=== PATIENT | female | born 1950 | race Caucasian/White ===

== ENCOUNTER 2018-04-14 08:08 | Emergency (ER) | payer OTHER ==
[~2018-04-14] VITALS: Ht 170.2 cm; Wt 90.7 kg
[2018-04-14 08:17] VITALS: BP 187/96
[2018-04-14] MEDS ORDERED: SYNTHROID25 MC1 PO (08:18)
[2018-04-14] MEDS ORDERED: VITAMIN D5000 UNIT PO (08:19)
[2018-04-14] MEDS ORDERED: CENTRUM SILVER1 EAC2 PO (08:19)
[2018-04-14] MEDS ORDERED: CELEXA20 MG PO (08:19)
[2018-04-14] MEDS ORDERED: PRAVACHOL20 MG PO (08:19)
[2018-04-14] MEDS ORDERED: LISINOPRIL10 MG PO (08:19)
[2018-04-14] MEDS ORDERED: FISH OIL 1,001000 M2 PO (08:19)
== END 2018-04-14 08:44 | disposition home or self-care (01) ==
LOC: M.ERS 08:08
DX: S01.01XA Laceration without foreign body of scalp, initial encounter (principal); F32.9 Major depressive disorder, single episode, unspecified; I10 Essential (primary) hypertension; E78.00 Pure hypercholesterolemia, unspecified; W22.8XXA Striking against or struck by other objects, initial encounter; Y93.89 Activity, other specified; Y92.89 Other specified places as the place of occurrence of the external cause; Y99.8 Other external cause status